=== PATIENT | female | born 1985 | race Two or more races ===

== ENCOUNTER 2023-04-26 20:09 | Emergency (ER) | payer MEDICAID ==
[~2023-04-26] VITALS: Ht 162.6 cm; Wt 65.8 kg
--- NOTE | 2023-04-26 20:34 | NUR ---
BIBS FOR HTN AT 150/100. TOOK .CLONODINE AND BP 129/94 IN TRIAGE, pt [id number], denies sob/cp. placed on monitor pending er provide reval
[2023-04-26] MEDS ORDERED: IBUPROFEN 600 MG TABLET PO ONE (21:00)
[2023-04-26] MEDS ORDERED: IBUPROFEN 600 MG TABLET ONE (21:04)
--- NOTE | 2023-04-26 22:30 | NUR ---
Patient discharged to home in stable condition. Written and verbal after care instructions given. Patient verbalizes understanding of instruction.
[2023-04-26 23:55] VITALS: BP 129/94
== END 2023-04-26 23:56 | disposition home or self-care (01) ==
LOC: ER 20:14
DX: R00.2 Palpitations (principal); I10 Essential (primary) hypertension
CPT/HCPCS: 71045-TC; 82962-TC